=== PATIENT | male | born 1925 | race Caucasian/White ===

== ENCOUNTER 2017-02-22 10:56 | Outpatient (CLI) | payer MEDICARE, OTHER ==
--- NOTE | 2017-02-22 13:07 | SJPRAD ---
CHEST TWO VIEWS: History: Renal mass. Preoperative chest radiograph. Date: 02-22-17 Comparison: 09-17-15 FINDINGS: There is a dual-lead intracardiac defibrillator. Cardiomegaly is seen. Calcification of the aorta is noted. There is blunting of the left costophrenic angle compatible with a small left sided pleural ef fusion or some left pleural scarring. No acute intrathoracic abnormality is seen. IMPRESSION: 1. Cardiomegaly. 2. Calcification of the aorta. 3. Blunting of the left costophrenic angle. This may represent a left pleural scar or small persisten t left sided pleural effusion. POS: [facility]
--- NOTE | 2017-02-22 13:10 | SJPRAD ---
AP AND OBLIQUE VIEWS LEFT RIBS: History: Left rib pain for one week. FINDINGS: AP and oblique views obtained and demonstrate what appears to be old healed left 8th and possible 9th rib fractures. No definite evidence of acute left sided rib fractures seen. No evidence of hemothora x or pneumothorax seen. IMPRESSION: Possible old left rib fractures of the 8th and 9th ribs. No definite evidence of acute fracture seen. POS: [facility]
== END 2017-02-22 10:57 | disposition home or self-care (01) ==
LOC: MWLC RAD 10:56
PROVIDERS: ATTEND Family Medicine
DX: W19.XXXA Unspecified fall, initial encounter (principal); I51.7 Cardiomegaly; I70.0 Atherosclerosis of aorta

== ENCOUNTER 2017-07-21 17:29 | Emergency (ER) | payer MEDICARE, OTHER ==
[2017-07-21 18:24] LABS: Anion Gap 12 mmol/L (10-20); BUN (Urea Nitrogen) 54 mg/dL (8.4-25.7); Band 3 % (5-11); Calc. Creatinine Clearance 0 mL/min (70-130); Calcium 9.2 mg/dL (7.8-10.44); Carbon Dioxide 23 mmol/L (23-31); Chloride 112 mmol/L (98-107); Eosinophils 1 % (0-10); Estimated GFR-MDRD 50; Glucose 109 mg/dL (83-110); Hemoglobin 12.2 g/dL (14.0-18.0); Lymphocytes 61 % (21-51); MDiff Complete? YES; Macrocytosis SLIGHT = 6-15 cells (100X) (0-5/hpf); Mean Corpuscular Hemoglobin 34.6 pg (27.0-31.0); Mean Corpuscular Volume 98.9 fl (80.0-94.0); Mean Platelet Volume 7.3 fL (7.4-10.4); Monocytes 9 % (0-10); Neutrophil 26 % (42-75); PLT Morphology Comment Appears Adequate; Platelet Count 176 thou/uL (130-400); Potassium 4.6 mmol/L (3.5-5.1); RBC Distribution Width 12.6 % (11.5-14.5); Red Blood Cell (RBC) Count 3.52 mill/uL (4.70-6.10); Sodium 142 mmol/L (136-145); White Blood Cell (WBC) Count 7.6 thou/uL (4.8-10.8)
== END 2017-07-21 19:05 | disposition home or self-care (01) ==
LOC: SCSER 17:29
DX: R19.7 Diarrhea, unspecified (principal); R60.0 Localized edema; I11.0 Hypertensive heart disease with heart failure; I50.9 Heart failure, unspecified; I25.2 Old myocardial infarction; J44.9 Chronic obstructive pulmonary disease, unspecified; E78.00 Pure hypercholesterolemia, unspecified; F41.9 Anxiety disorder, unspecified; Z85.038 Personal history of other malignant neoplasm of large intestine
CPT/HCPCS: 80048; 82274; 85025; 99285